=== PATIENT | female | born 1995 | race African-American/Black ===

== ENCOUNTER 2019-12-07 11:43 | Emergency (ER) | payer OTHER, SELFPAY ==
--- NOTE | ~2019-12-07 | XR_ITS ---
EXAMINATION: XR chest 2V EXAM DATE: 12/07/2019 12:39 INDICATION: Nonproductive cough, fever. TECHNIQUE: Frontal and lateral projections of the chest obtained and reviewed. Comparison is made to prior examination from 09/14/2019. FINDINGS: The lungs are clear. There are no pleural effusions. The cardiomediastinal silhouette is within normal limits. There is no pneumothorax suspected. The bones and soft tissues are unremarkab le. IMPRESSION: Normal chest x-ray exam. Reviewed, dictated and finalized at location B. L WORKER HELPER IMPRESSION: Normal chest x-ray exam.
[2019-12-07 11:56] VITALS: BP 119/73; PULSE 118; RESP 16; TEMP 38.5; O2SAT 100
--- NOTE | 2019-12-07 12:04 | ED.GENADULT ---
HPI - General Adult General Chief complaint: Upper Respiratory Infection Stated complaint: back pain Time Seen by Provider: 12/07/19 12:06 Source: patient and RN notes reviewed Mode of arrival: ambulatory Limitations: no limitations History of Present Illness HPI narrative: This patient onset of a cough on 12/05/2019. The cough is been nonproductive. It has not kept her awake. Then she developed mid posterior thoracic back pain when she awakened this morning. Coughing and moving makes the pain worse. She has not had an influenza vaccine this season. She has not had any ear pain, no nasal drainage, no sore throat. She has had no rashes. There is been no nausea, no vomiting, no diarrhea. She has had no hematuria, no dysuria, no pyuria. She has had no rashes. She has had no known exposure to anyone with strep throat, mono, influenza, bronchitis, pneumonia that she is aware of. She has not been traveling. Related Data Home Medications Medication Instructions Recorded Confirmed medroxyprogesterone 150 mg IM DIRECTED 12/07/19 12/07/19 Allergies Allergy/AdvReac Type Severity Reaction Status Date / Time No Known Allergies Allergy Verified 12/07/19 11:59 Review of Systems Review of Systems: Narrative: CONSTITUTIONAL: Denies fever, chills, or sweats. Noncontributory except as pertains to the past medical history and history of present illness. EYES: Denies visual changes, redness, or discharge. ENT: Denies rhinorrhea, congestion, sore throat, or otalgia. CARDIOVASCULAR: Denies chest pain, palpitations, or edema. RESPIRATORY: Denies cough or dyspnea. GASTROINTESTINAL: Denies abdominal pain, nausea, vomiting, or diarrhea. GENITOURINARY: Denies dysuria or hematuria. SKIN: Denies rash or itching. MUSCULOSKELETAL: Denies back pain, joint pain, or myalgia. NEUROLOGIC: Denies headache, numbness, or weakness. PSYCHIATRIC: Denies anxiety or depression. [facility] Past Medical History Medical History (Updated 12/07/19 @ 13:03 by Erik Alexander MD) No significant medical problems Social History Social History (Updated 09/14/19 @ 17:11 by Maria Guadalupe Apodaca) Smoking status: Never smoker Comments At time of signature, I have reviewed and agree with nursing past medical, surgical, social, and family history.Please see nursing chart for further information. There is no relevant family history pertinent to the presenting complaint. Exam Narrative: Exam Narrative: GENERAL: Well-appearing, well-nourished, and in no acute distress. HEAD: Normocephalic, atraumatic. EYES: PERRLA and EOMI. EARS: TM's clear bilaterally and the canals are clear. NOSE: Nares clear, no rhinorrhea or epistaxis. THROAT:Mucous membranes moist.Oropharynx normal without erythema or exudates. NECK: Supple. No adenopathy of the neck, supraclavicular, axillary, or inguinal areas. RESPIRATORY: No respiratory distress. Airway patent. Respirations non-labored. The patient has rhonchi in the upper and midlung hinkle, but not the bases. There are no wheezes, no rales, no retractions, no use accessory muscle respirations. Patient's not cyanotic and not dyspneic. The pulse ox on room air is 100% her current temperature is 101.3. There is no palpation tenderness over the anterior, lateral, or posterior chest wall. There is no chest wall deformity. HEART: Regular rate and rhythm. No murmur heard. Normal peripheral pulses. ABDOMEN: Soft, nontender, nondistended, normal active bowel sounds.No masses. No rebound or guarding, No organomegaly. There is no CVA pain. No pain McBurney's point. She has a negative Farah sign and negative Rovsing sign. There are no pulsatile masses and no audible bruits. EXTREMITIES: No clubbing/cyanosis/ edema. Normal strength & range of motion. SKIN: Warm, dry.Normal color. There are no skin rash or skin lesions. Patient is well-nourished well-hydrated has moist mucous membranes and no tenting of the skin. NEURO: Alert and oriented. CN 2-1
== END 2019-12-07 13:07 | disposition home or self-care (01) ==
PROVIDERS: Emergency Provider Family Medicine
DX: J40 Bronchitis, not specified as acute or chronic (principal)
CPT/HCPCS: 71046; 87804; 99213; G0463

== ENCOUNTER 2019-12-09 03:56 | Emergency (ER) | payer OTHER, SELFPAY ==
--- NOTE | ~2019-12-09 | XR_ITS ---
XR chest 2V DATE: 12/09/2019 04:26 INDICATION: Cough TECHNIQUE: PA and lateral views COMPARISON: None FINDINGS: Normal heart size. No hilar or mediastinal enlargement no pulmonary infiltrate or consolida tion, pleural effusion or pulmonary vascular congestion or pneumothorax. IMPRESSION: No active cardiac pulmonary disease Reviewed, dictated and finalized at location A. [employer]CTURE MANAGER
[2019-12-09 03:57] VITALS: BP 94/61; PULSE 124; RESP 16; TEMP 37.3; O2SAT 100
[2019-12-09 04:06] VITALS: O2SAT 100
--- NOTE | 2019-12-09 04:09 | ED.URI ---
HPI - URI/Sore Throat General Chief Complaint: Upper Respiratory Infection Stated Complaint: fever/cough/bodyaches Time Seen by Provider: 12/09/19 04:00 Source: RN notes reviewed History of Present Illness HPI Narrative: Patient presents emergency department from home for upper respiratory infection. She states symptoms been ongoing for the past 3 days. Station states she has had rhinorrhea, sore throat a cough is been nonproductive and one episode nausea vomiting today. Patient states she went to the urgent care 2 days ago diagnosed with bronchitis and started on Augmentin. Patient states she has been having intermittent fevers with last fever yesterday. She states she is taken no Tylenol or ibuprofen today. States that she does smoke marijuana. Denies any other symptoms at this time Related Data Home Medications Medication Instructions Recorded Confirmed medroxyprogesterone 150 mg IM DIRECTED 12/07/19 12/07/19 Allergies Allergy/AdvReac Type Severity Reaction Status Date / Time No Known Allergies Allergy Verified 12/07/19 11:59 Review of Systems Review of Systems: Narrative: Gen.: Reports fevers and chills Eyes: Denies eye pain or visual change ENT: Reports sore throat and rhinorrhea Respiratory: Reports cough CV: Denies chest pain or palpitations GI: Denies abdominal pain reports nausea and vomiting Musculoskeletal: Denies back pain or muscle pain Neuro: Denies numbness, tingling, weakness or focal weakness Skin: Denies rash Except as documented, all other systems reviewed and negative [facility] Past Medical History Medical History No significant medical problems Social History Social History (Updated 12/09/19 @ 04:10 by Gregor Gale DO) Smoking status: Never smoker Substance use type: marijuana Exam Narrative: Exam Narrative: APPEARANCE: No acute distress, nontoxic, resting in bed EYES: EOMI HEENT: Normocephalic, atraumatic, TMs clear bilaterally, bilateral turbinates boggy, oral mucosa dry, erythema the posterior pharynx and bilateral tonsils, no exudate RESPIRATORY: No respiratory distress Clear to auscultation bilaterally with no rhonchi wheezing or rales. CARDIOVASCULAR: Regular rate and rhythm without murmurs rubs or gallops. ABDOMINAL: Soft, nontender, nondistended, no rebound or guarding MUSCULOSKELETAl: Moves all extremities. No clubbing, cyanosis or edema. NEURO: Awake and alert. Following commands, speech normal, no focal deficits SKIN:: Warm, dry. No rashes lesions or abrasions PSYCHIATRIC: Normal affect/mood, Course Course Emergency Course: Discussed with patient results of workup and diagnosis. Discussed need for follow-up with primary care, proper use of medication, and reasons to return to the emergency department. Patient understands and agrees to current treatment plan patient does have Tessalon Perles at home Vital Signs Vital signs: Vital Signs Temperature 99.1 F 12/09/19 03:57 Pulse Rate 124 H 12/09/19 03:57 Respiratory Rate 16 12/09/19 03:57 Blood Pressure 94/61 L 12/09/19 03:57 Pulse Oximetry 100 12/09/19 03:57 Temperature 97.8 F 12/09/19 05:06 Pulse Rate 86 12/09/19 05:06 Respiratory Rate 18 12/09/19 05:06 Blood Pressure 118/80 12/09/19 05:06 Pulse Oximetry 100 12/09/19 05:06 MDM - URI/Sore Throat Lab Data Labs: Influenza A Screen Negative Reference Range: Negative Influenza B Screen Positive Reference Range: Negative Imaging Data Attestation: I personally reviewed and interpreted this imaging study as follows: My impression: CXR-no acute process Discharge Plan Discharge Clinical Impression: Influenza B Patient Disposition: Home, Self-Care Condition: Stable Instructions: Antibiotic Form, Influenza (ED) Additional Instructions: Return for increased shortness of breath vomiting or any other symptoms of dc
[2019-12-09] MEDS: LACTATED RINGERS 1,000 ML 999 ML IV CONT (04:19)
[2019-12-09 05:06] VITALS: BP 118/80; PULSE 86; RESP 18; TEMP 36.6; O2SAT 100
== END 2019-12-09 05:32 | disposition home or self-care (01) ==
PROVIDERS: Emergency Provider Emergency Medicine
DX: J10.1 Influenza due to other identified influenza virus with other respiratory manifestations (principal)
CPT/HCPCS: 71046; 87804; 96361; 96374; 99284; J0131; J7120

== ENCOUNTER 2020-04-17 06:39 | Emergency (ER) | payer OTHER, SELFPAY ==
--- NOTE | ~2020-04-17 | XR_ITS ---
EXAMINATION: XR shoulder LT min 2V DATE: 04/17/2020 07:23 INDICATION: Left shoulder pain and limited range of motion TECHNIQUE: AP internally and externally rotated, AP oblique externally rotated and transscapular Y vi ews of the left shoulder were obtained. COMPARISON: None FINDINGS: Normal alignment. No fracture. Glenohumeral joint is normal. Acromioclavicular joint is normal. Soft tissues are unremarkable. IMPRESSION: Negative left shoulder radiographs. Reviewed, dictated and finalized at location A.
[2020-04-17 06:46] VITALS: BP 102/72; PULSE 109; RESP 15; TEMP 37; O2SAT 100
--- NOTE | 2020-04-17 07:11 | ED.GENADULT ---
HPI - General Adult General Chief complaint: Extremity Injury, Upper Stated complaint: left shoulder pain x1 month Time Seen by Provider: 04/17/20 07:04 Source: RN notes reviewed History of Present Illness HPI narrative: Patient presents emergency department from home for shoulder pain. Patient states symptoms began 1-1/2 months ago. The pain is located in the left anterior shoulder pain is worse with movement of the shoulder. 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 Denies any direct trauma or injury denies any pain of the left elbow or wrist. Denies any chest pain shortness of breath fever or any other symptoms. Patient states she has been taking ibuprofen for the pain with last dose yesterday Related Data Home Medications Medication Instructions Recorded Confirmed medroxyprogesterone 150 mg IM DIRECTED 12/07/19 12/07/19 Allergies Allergy/AdvReac Type Severity Reaction Status Date / Time No Known Allergies Allergy Verified 12/07/19 11:59 Review of Systems Review of Systems: Narrative: Gen.: Denies fevers or chills Musculoskeletal: See HPI CV: Denies chest pain Respiratory: Denies shortness of breath : Denies chance of Neuro: Denies numbness, tingling, weakness Skin: Denies rash Endo: Denies [facility] Social History Social History Smoking status: Never smoker Substance use type: marijuana Exam Narrative: Exam Narrative: APPEARANCE: No acute distress, nontoxic, resting in bed EYES: EOMI HEENT: Normocephalic, atraumatic, OMM RESPIRATORY: No respiratory distress Clear to auscultation bilaterally with no rhonchi wheezing or rales. CARDIOVASCULAR: Regular rate and rhythm without murmurs rubs or gallops. ABDOMINAL: Soft, nontender, nondistended, no rebound or guarding MUSCULOSKELETAl: Moves all extremities. No clubbing, cyanosis or edema. Tender to palpation of the left anterior shoulder no swelling or ecchymosis pain with flexion abduction greater than 45 degrees, no tenderness left elbow or wrist, radial pulse 2+, neurovascular intact NEURO: Awake and alert. Following commands, speech normal, no focal deficits SKIN:: Warm, dry. No rashes lesions or abrasions PSYCHIATRIC: Normal affect/mood, Course Course Emergency Course: Discussed with patient results of workup and diagnosis. Discussed need for follow-up with primary care, proper use of medication, and reasons to return to the emergency department. Patient understands and agrees to current treatment plan. Discussed with patient need for follow-up with Ortho. We did discuss the use of a sling discussed with the patient with this been a chronic issue for over a month and a half concern that using a sling because the shoulder to become more frozen Vital Signs Vital signs: Vital Signs Temperature 98.6 F 04/17/20 06:46 Pulse Rate 109 H 04/17/20 06:46 Respiratory Rate 15 04/17/20 06:46 Blood Pressure 102/72 04/17/20 06:46 Pulse Oximetry 100 04/17/20 06:46 Temperature 98.6 F 04/17/20 06:46 Pulse Rate 109 H 04/17/20 06:46 Respiratory Rate 15 04/17/20 06:46 Blood Pressure 102/72 04/17/20 06:46 Pulse Oximetry 100 04/17/20 06:46 Medical Decision Making Vital Signs Vital Signs: Vital Signs Temperature 98.6 F 04/17/20 06:46 Pulse Rate 109 H 04/17/20 06:46 Respiratory Rate 15 04/17/20 06:46 Blood Pressure 102/72 04/17/20 06:46 Pulse Oximetry 100 04/17/20 06:46 Temperature 98.6 F 04/17/20 06:46 Pulse Rate 109 H 04/17/20 06:46 Respiratory Rate 15 04/17/20 06:46 Blood Pressure 102/72 04/17/20 06:46 Pulse Oximetry 100 04/17/20 06:46 Discharge Plan Discharge Clinical Impression: Sprain of left shoulder Patient Disposition: Home, Self-Care Condition: Stable
[2020-04-17] MEDS: IBUPROFEN 400 MG TABLET PO (07:24)
== END 2020-04-17 08:10 | disposition home or self-care (01) ==
PROVIDERS: Emergency Provider Emergency Medicine
DX: S43.402A Unspecified sprain of left shoulder joint, initial encounter (principal); X58.XXXA Exposure to other specified factors, initial encounter
CPT/HCPCS: 73030; 99283; A9270

== ENCOUNTER 2021-02-05 13:34 | Emergency (ER) | payer OTHER, SELFPAY ==
[2021-02-05 13:49] VITALS: BP 120/65; PULSE 80; RESP 16; TEMP 36.8; O2SAT 99
--- NOTE | 2021-02-05 13:54 | ED.EYEPROB ---
HPI - Eye Problem General Chief complaint: Eye Problems Stated complaint: Swollen Eye Time Seen by Provider: 02/05/21 13:50 Source: patient and RN notes reviewed Mode of arrival: ambulatory Limitations: no limitations History of Present Illness HPI Narrative: Three 5-year-old female presents with concern for possible stye on her right upper eyelid. Reports 1 month history of a bump on the inner corner of the right upper eyelid, reports mild eyelid edema. Reports that she has been using warm compresses and moisturizing drops with no relief. She denies vision changes, eye pain, drainage. MD chief complaint: other (eyelid abnormality) Related Data Home Medications Medication Instructions Recorded Confirmed medroxyprogesterone 150 mg IM DIRECTED 12/07/19 02/05/21 albuterol sulfate 2 inh INHALATION DIRECTED 02/05/21 02/05/21 Allergies Allergy/AdvReac Type Severity Reaction Status Date / Time No Known Allergies Allergy Verified 12/07/19 11:59 Review of Systems Review of Systems: Narrative: CONSTITUTIONAL: Denies malaise, chills, sweats, or fever. EYES: Denies visual changes, redness, or discharge. Reports a lump on her right upper eyelid, minor eyelid swelling. Denies pain ENT: Denies rhinorrhea, congestion, sinus pain, otalgia or sore throat. SKIN: Denies rash or itching. NEUROLOGIC: Denies headache. All systems reviewed & are unremarkable except as noted in HPI and below PMFSH Past Medical History Medical History (Updated 02/05/21 @ 13:57 by Carole Yousif NP) No significant medical problems Social History Social History Smoking status: Never smoker Substance use type: marijuana Comments At time of signature, agree with nursing past medical, surgical, social and family history. There is no relevant family history pertinent to the presenting complaint Exam Narrative: Exam Narrative: GENERAL: Well-appearing, well-nourished, and in no acute distress. HEAD: Normocephalic, atraumatic. EYES: PERRLA, conjunctivae clear, and EOMI. No nystagmus. Flaccid noted to the right upper eyelid, inner canthus, mild upper eyelid edema noted, no drainage noted ENT: Nares clear. Mucous membranes moist. NECK: Supple. CHEST: No respiratory distress. Speaks in full sentences. HEART: Regular rate and rhythm SKIN: Warm, dry, no rash. NEURO: Alert and oriented x3. PSYCH: Normal mood and affect Course Course Emergency Course: Patient is aware of diagnosis, understands and agrees to treatment plan. Anticipatory guidance given. Patient agrees to follow-up as directed and is aware of reasons to seek care at the emergency department. Portions of this record may have been created with voice recognition software Vital Signs Vital signs: Vital Signs Temperature 98.3 F 02/05/21 13:49 Pulse Rate 80 02/05/21 13:49 Respiratory Rate 16 02/05/21 13:49 Blood Pressure 120/65 02/05/21 13:49 Pulse Oximetry 99 02/05/21 13:49 Temperature 98.3 F 02/05/21 13:49 Pulse Rate 80 02/05/21 13:49 Respiratory Rate 16 02/05/21 13:49 Blood Pressure 120/65 02/05/21 13:49 Pulse Oximetry 99 02/05/21 13:49 Reviewed. MDM - Eye Problem MDM Narrative Medical decision making narrative: Consideration of the following conditions may be warranted for the presenting problem, they are not final diagnoses: Bacterial conjunctivitis, allergic conjunctivitis, viral conjunctivitis, foreign body, blepharitis, chalazion, hordeolum, corneal abrasion, preseptal cellulitis, orbital cellulitis. No evidence of proptosis, ophthalmoplegia, vision loss, pain with eye movement. Exam findings show no acute concerns or changes; patient is non-toxic appearing and is in no distress. Patient is appropriate for outpatient treatment and follow-up. Critical Care Time Critical Care Time Critical Care Time: No Discharge Plan Discharge Clinical Impression: Chalazion of right u
== END 2021-02-05 14:01 | disposition home or self-care (01) ==
PROVIDERS: Emergency Provider Nurse Practitioner
DX: H00.11 Chalazion right upper eyelid (principal)
CPT/HCPCS: 99213; G0463

== ENCOUNTER 2021-05-22 13:44 | Emergency (ER) | payer OTHER, SELFPAY ==
[2021-05-22 13:51] VITALS: BP 111/61; PULSE 79; RESP 16; TEMP 36.4; O2SAT 99
--- NOTE | 2021-05-22 14:22 | ED.ABDPAIN ---
HPI - Abdominal Pain General Chief Complaint: Abdominal Pain Stated Complaint: abd pain Time Seen by Provider: 05/22/21 14:10 Source: patient and RN notes reviewed Mode of arrival: ambulatory Limitations: no limitations History of Present Illness HPI narrative: Patient presents today complaining of upper abdominal pain x1.5 months. Pain comes and goes every 1-2 hours and last for 3 to 5 minutes. She describes the pain as sharp. Occasionally she experiences nausea when her pain arrives. States her pain is worse today and she needed to leave work. She does not currently have any pain. She has not tried any [id number] treatment prior to arrival. MD elicited complaint: abdominal pain Related Data Home Medications Medication Instructions Recorded Confirmed medroxyprogesterone 150 mg IM DIRECTED 12/07/19 02/05/21 Allergies Allergy/AdvReac Type Severity Reaction Status Date / Time No Known Allergies Allergy Verified 12/07/19 11:59 Review of Systems Review of Systems: Narrative: CONSTITUTIONAL: Denies body aches, fever, chills, or sweats. EYES: Denies visual changes, redness, or discharge. ENT: Denies rhinorrhea, congestion, sore throat, or otalgia. CARDIOVASCULAR: Denies chest pain, palpitations, or edema. RESPIRATORY: Denies cough or dyspnea. GASTROINTESTINAL: Denies vomiting, or diarrhea.+ Abdominal pain, nausea GENITOURINARY: Denies dysuria or hematuria. SKIN: Denies rash, itching, or wounds. MUSCULOSKELETAL: Denies back pain, joint pain, or myalgia. NEUROLOGIC: Denies headache, numbness, tingling, or weakness. PSYCH: Denies depression or anxiety. [facility] Past Medical History Medical History (Updated 05/22/21 @ 14:27 by Prisca Loco, [facility], ) No significant medical problems Social History Social History Smoking status: Never smoker Substance use type: marijuana Comments At time of signature, I have reviewed and agree with nursing past medical, surgical, social and family history unless otherwise noted. Please see nursing chart for further information. There is no relevant family history pertinent to the presenting complaint Exam Narrative: Exam Narrative: GENERAL: Well-appearing, well-nourished, and in no acute distress. HEAD: Normocephalic, atraumatic. EYES: EOMI. No redness or drainage. Conjunctivae normal. ENT: Mucous membranes pink and moist. NECK: Normal AROM. CHEST: No respiratory distress. Clear to auscultation. HEART: Regular rate and rhythm. No murmur appreciated. Normal peripheral pulses. ABDOMEN: Soft, nondistended, normal active bowel sounds.+ Epigastric tenderness MUSCULOSKELETAL: No bony tenderness. EXTREMITIES: Normal range of motion. No edema. SKIN: Warm, dry, no rash. Capillary refill normal. Normal skin turgor. NEURO: No focal deficits. Alert and oriented x3. Gait steady. PSYCH: Normal affect. No signs of depression or anxiety. Course Vital Signs Vital signs: Vital Signs Temperature 97.5 F L 05/22/21 13:51 Pulse Rate 79 05/22/21 13:51 Respiratory Rate 16 05/22/21 13:51 Blood Pressure 111/61 05/22/21 13:51 Pulse Oximetry 99 05/22/21 13:51 Temperature 97.5 F L 05/22/21 13:51 Pulse Rate 79 05/22/21 13:51 Respiratory Rate 16 05/22/21 13:51 Blood Pressure 111/61 05/22/21 13:51 Pulse Oximetry 99 05/22/21 13:51 Reviewed MDM - Abdominal Pain Differential Diagnosis Differential diagnosis: Likely abdominal pain and other (Cholecystitis, gastritis, esophagitis, GERD) Lab Data Attestation: I reviewed the patient's lab results. Labs: Urine Glucose Negative Reference Range: Negative Urine Bilirubin Negative Reference Range: Negative Urine Ketone Negative Reference Range: Neg
== END 2021-05-22 14:33 | disposition home or self-care (01) ==
PROVIDERS: Emergency Provider Nurse Practitioner
DX: K29.70 Gastritis, unspecified, without bleeding (principal)
CPT/HCPCS: 81003; 99213; G0463

== ENCOUNTER 2021-05-25 23:20 | Emergency (ER) | payer OTHER, SELFPAY ==
[2021-05-25 23:30] VITALS: BP 110/69; PULSE 92; RESP 18; TEMP 37.1; O2SAT 100
--- NOTE | 2021-05-25 23:34 | PC.NURSE ---
Patient has been taking macrobid as prescribed without relief of symptoms.
--- NOTE | 2021-05-26 00:45 | PC.NURSE ---
Call for patient to treatment room, no answer.
--- NOTE | 2021-05-26 01:45 | PC.NURSE ---
Call to patient in waiting room, no answer. Pt not in bathroom or in vertibule immediately outside of ED. Assume pt has left without being seen.
== END 2021-05-26 01:45 | disposition left against medical advice (07) ==
DX: R30.0 Dysuria (principal)
CPT/HCPCS: 99199

== ENCOUNTER 2021-05-26 15:04 | Emergency (ER) | payer OTHER, SELFPAY ==
[2021-05-26 15:13] VITALS: BP 117/76; PULSE 103; RESP 16; TEMP 37.7; O2SAT 100
[2021-05-26 15:36] LABS: Add Urine Microscopic? YES; Appearance Urine Clear (Clear); Bilirubin Urine Negative (Negative); Blood Urine Negative (Negative); Color Urine Yellow (Yellow); Glucose Urine UA Negative (Negative); Ketones Urine Negative (Negative); Leukocyte Esterase Ur 3+ LEU/UL (Negative); Mucus Urine Rare /lpf; Nitrate Urine Negative (Negative); Protein Urine Negative (Negative); Squamous Epithelial Cell Urine Moderate /hpf (Few); WBC Urine 21-30 /hpf
[2021-05-26 16:25] VITALS: BP 104/68; PULSE 92; RESP 20; O2SAT 100
--- NOTE | 2021-05-26 16:48 | ED.FEMALEGU ---
HPI - Female Genitourinary General Chief complaint: Urogenital-Female Stated complaint: lower back pain Time Seen by Provider: 05/26/21 15:25 Source: patient and RN notes reviewed Mode of arrival: ambulatory Limitations: no limitations History of Present Illness HPI Narrative: This is a 25 year old female who presents for evaluation vaginal itching, swelling and pain. She developed symptoms on Friday. She states she was started on antibiotics on Friday and she has been taking them twice day. She continues to have vaginal pain and swelling, and she has no improvement. She denies fever, nausea, vomiting or abdominal pain. She does reports lower back ache. She states her partner was tested for STDS and it was negative. Related Data Home Medications Medication Instructions Recorded Confirmed medroxyprogesterone 150 mg IM DIRECTED 12/07/19 02/05/21 nitrofurantoin monohyd/m-cryst 05/26/21 Allergies Allergy/AdvReac Type Severity Reaction Status Date / Time No Known Allergies Allergy Verified 05/26/21 15:27 Review of Systems Review of Systems: All systems reviewed & are unremarkable except as noted in HPI and below PMFSH Past Medical History Medical History (Updated 05/26/21 @ 17:36 by Dori Kapoor MD) No significant medical problems Surgical History Surgical History (Updated 05/26/21 @ 16:51 by Dori Kapoor MD) No pertinent past surgical history Social History Social History Smoking status: Never smoker Substance use type: marijuana Exam Const: General: alert Nutritional Appearance: thin Orientation/consciousness: patient oriented x3 HENMT: Head: normocephalic and atraumatic Face and sinus: face symmetric Eyes: EOM: EOMs intact bilaterally Resp: Effort & Inspection: normal respiratory effort and no retractions Auscultation: clear to auscultation bilaterally Cardio: Rate: regular rate Rhythm: regular rhythm Heart sounds: no murmurs GI: GI Palp: Yes Soft to palpation, No Tenderness to palpation present (GI) and No Guarding due to palpation present (GI) Auscultation: normal bowel sounds : External Female Exam: externally tender and lesion (multipel small ulcerations to labia minora) Speculum Exam - Vagina: abnormal vaginal discharge yellow Speculum Exam - Cervix: Cervical os closed, Abnormal cervical discharge present yellow, Cervical lesion present petechiae and Cervical tenderness present Bimanual exam- vagina & uterus: Cervical tenderness present and cervical motion tenderness Back/Spine/Pelvis: Back: no CVA tenderness Neuro: General: patient oriented x3 and moves all extremities Extrem: General: normal to inspection Psych: Mental Status: mental status grossly normal Affect: normal affect Course Reevaluation(s) Reevaluation #1: I discussed with patient that she will be treated for PID. She has multiple ulcerations external lesions. Cervix is friable. Culture herpes was sent. 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 Date: 05/26/21 Time: 17:34 Vital Signs Vital signs: Vital Signs Temperature 99.8 F H 05/26/21 15:13 Pulse Rate 103 H 05/26/21 15:13 Respiratory Rate 16 05/26/21 15:13 Blood Pressure 117/76 05/26/21 15:13 Pulse Oximetry 100 05/26/21 15:13 Temperature 99.8 F H 05/26/21 15:13 Pulse Rate 92 05/26/21 16:25 Respiratory Rate 20 05/26/21 16:25 Blood Pressure 104/68 05/26/21 16:25 Pulse Oximetry 100 05/26/21 16:25 MDM - Female Genitourinary Lab Data Attestation: I reviewed the patient's lab results. Labs: Lab Results 05/26/21 05/26/21 05/26/21 Range/Units 15:26 16:58 16:58 Urine Color Yellow (Yellow) Urine Appearance Clear (Clear) Urine pH 9.0 (5.0-9.0) Ur Specific Hamilton 1.020 (1.001-1.035) Urine Protein Negative (Negative) mg/dL Urine Glucose (UA) Negative (Negative) mg/dL
[2021-05-26] MEDS: cefTRIAXone 1 GM VIAL 0.5 GM IM (16:55)
[2021-05-26] MEDS: DOXYCYCLINE HYCLATE 100 MG TABLET PO (16:56)
[2021-05-26] MEDS: IBUPROFEN 400 MG TABLET PO (16:56)
--- NOTE | 2021-05-26 17:47 | PC.NURSE ---
Pt states her IV was removed by Ana. No IV was in pts arm upon discharge
== END 2021-05-26 17:47 | disposition home or self-care (01) ==
PROVIDERS: Emergency Medicine; Emergency Provider General Practice
DX: N73.9 Female pelvic inflammatory disease, unspecified (principal)
CPT/HCPCS: 81001; 81025; 87070; 87086; 87255; 87491; 87591; 87808; 96372; 99284; A9270; J0696

== ENCOUNTER 2023-12-10 16:51 | Emergency (ER) | payer OTHER, SELFPAY ==
[2023-12-10 17:03] VITALS: BP 98/60; PULSE 86; RESP 16; TEMP 36.8; O2SAT 99
--- NOTE | 2023-12-10 17:34 | ED.GENADULT ---
HPI - General Adult General Chief complaint: Urogenital-Female Stated complaint: vaginal issue Source: patient, RN notes reviewed and old records reviewed Mode of arrival: ambulatory Limitations: no limitations History of Present Illness HPI narrative: 20-year-old female presents to [facility] with complaints of vaginal itching with white vaginal discharge that started 2-3 days ago after patient used a perfumed [employer] soap. Patient denies concerns for STDs. Patient denies UTI symptoms. Related Data Home Medications Medication Instructions Recorded Confirmed medroxyprogesterone 150 mg/mL 150 mg IM DIRECTED 12/07/19 12/10/23 intramuscular suspension escitalopram oxalate 10 mg tablet 10 mg PO DAILY 12/10/23 12/10/23 Allergies Allergy/AdvReac Type Severity Reaction Status Date / Time No Known Allergies Allergy Verified 12/10/23 17:01 Review of Systems Constitutional: Constitutional: Reports no additional constitutional complaints, Denies body ache(s), Denies chills, Denies fatigue, Denies fever(s) and Denies headache(s) Eyes: Eyes: Reports no additional eye complaints and Denies blurry vision ENT: Reports system reviewed and no additional complaints, except as documented, Denies vertigo, Denies dizziness, Denies ear discharge, Denies otalgia, Denies facial pain, Denies headache(s), Denies nasal congestion, Denies nasal discharge, Denies sinus pain, Denies sinus pressure and Denies sore throat Cardiovascular: Cardiovascular: Reports no additional cardiovascular complaints, Denies chest pain, Denies chest pain at rest, Denies rapid heart rate and Denies dyspnea Respiratory: Respiratory: Reports no additional respiratory complaints, Denies chest congestion, Denies cough, Denies pain on inspiration, Denies pain with cough and Denies dyspnea Gastrointestinal: Gastrointestinal: Denies abdominal pain, Denies diarrhea, Denies nausea and Denies vomiting Genitourinary: Genitourinary: Reports vaginal discharge ( Thick white) and Reports vaginal pruritus Integumentary/Breasts: Skin/Breast: Denies rash Neurologic: Reports system reviewed and no additional complaints, except as documented, Denies vertigo, Denies dizziness and Denies headache(s) Endocrine: Endocrine: Denies fatigue PMFSH Past Medical History Medical History No significant medical problems Surgical History Surgical History No pertinent past surgical history Social History Social History Smoking status: Never smoker Substance use type: marijuana Comments At the time of my signature, I reviewed and agree with the nursing past medical, surgical, social, and family history. There is no relevant family history pertinent to the patient complaint. Exam Const: General: cooperative, healthy appearing, no acute distress and well nourished Nutritional Appearance: well nourished Orientation/consciousness: patient oriented x3 Limitations: no limitations HENMT: Head: normal to inspection and normocephalic Ears: external ears normal, TM's normal bilaterally, mastoids normal and Abnormal EAC present Face/Nose/Sinus: normal facial exam Face and sinus: normal facial exam Mouth: Yes Normal oral and palatal mucosa present, Yes oropharynx normal and Yes moist mucous membranes Throat: tonsils normal, uvula midline and no uvular edema Eyes: General: appearance normal, both eyes and all related structures Sclera: sclerae normal Pupils: Equal, round and reactive pupils present Resp: Effort & Inspection: normal respiratory effort, able to speak in complete sentences, no audible wheezes, no cough, no respiratory distress and no retractions GI: Inspection: normal to inspection GI Palp: No abdominal tenderness, Yes Soft to palpation, No Firmness to palpation present (GI) and No Tenderne
== END 2023-12-10 17:43 | disposition home or self-care (01) ==
PROVIDERS: Emergency Provider Registered Nurse
DX: B37.31 Acute candidiasis of vulva and vagina (principal); F12.90 Cannabis use, unspecified, uncomplicated
CPT/HCPCS: 99213; G0463

== ENCOUNTER 2024-03-28 06:48 | Emergency (ER) | payer OTHER, SELFPAY ==
[2024-03-28 06:55] VITALS: BP 119/76; PULSE 79; RESP 14; O2SAT 100
--- NOTE | 2024-03-28 07:35 | ED.BACK ---
HPI - Back Pain/Injury General Chief Complaint: Back Pain/Injury Stated Complaint: Lower back pain Time Seen by Provider: 03/28/24 07:00 History of Present Illness HPI Narrative: Patient is a 28-year-old female who presents ER with left-sided back pain. Sudden onset. Flank region. Occasion radiates towards the epigastrium. No nausea or vomiting. Began yesterday. Worse with physical movements such as bending and twisting. No urinary frequency urgency or dysuria. She has been taking ibuprofen with minimal improvement. Occasionally has pain with deep breath but is not particularly dyspnea. No hemoptysis. No leg swelling. Related Data Home Medications Medication Instructions Recorded Confirmed medroxyprogesterone 150 mg/mL 150 mg IM DIRECTED 12/07/19 12/10/23 intramuscular suspension escitalopram oxalate 10 mg tablet 10 mg PO DAILY 12/10/23 12/10/23 Allergies Allergy/AdvReac Type Severity Reaction Status Date / Time No Known Allergies Allergy Verified 03/28/24 07:07 Review of Systems Review of Systems: All systems reviewed & are unremarkable except as noted in HPI and below Constitutional: Constitutional: Reports no additional constitutional complaints ENT: Reports system reviewed and no additional complaints, except as documented Cardiovascular: Cardiovascular: Reports no additional cardiovascular complaints Respiratory: Respiratory: Reports no additional respiratory complaints Gastrointestinal: Gastrointestinal: Reports no additional gastrointestinal complaints Musculoskeletal: Musculoskeletal: Reports back pain, Denies arthralgias and Denies joint swelling PMFSH Past Medical History Medical History No significant medical problems Surgical History Surgical History No pertinent past surgical history Social History Social History Smoking status: Never smoker Substance use type: marijuana Exam Narrative: GENERAL: Uncomfortable-appearing, well-nourished, and in no acute distress. HEAD: Normocephalic, atraumatic. ENT: Mucous membranes moist. CHEST: Clear to auscultation. No respiratory distress. HEART: Regular rate and rhythm. Normal peripheral pulses. ABDOMEN: Soft, nontender, nondistended. back: No reproducible midline and paraspinal muscle tenderness of the T/L-spine. Patient does have pain however with bending and twisting in left side. EXTREMITIES: Normal range of motion. No edema. SKIN: Warm, dry, no rash. NEURO: Alert and oriented x3. PSYCH: Normal mood and affect. Course Course Emergency Course: patient resting comfortably. Received Toradol for pain. Nonspecific elevation in white blood cell count. Negative D-dimer. Normal CMP and lipase. Patient felt appropriate for discharge home with anti-inflammatories muscle relaxers. Vital Signs Vital signs: Vital Signs Pulse Rate 79 03/28/24 06:55 Respiratory Rate 14 03/28/24 06:55 Blood Pressure 119/76 03/28/24 06:55 Pulse Oximetry 100 03/28/24 06:55 Oxygen Delivery Room Air 03/28/24 06:55 Pulse Rate 82 03/28/24 08:15 Respiratory Rate 18 03/28/24 08:15 Blood Pressure 106/75 03/28/24 08:15 Pulse Oximetry 100 03/28/24 08:15 Oxygen Delivery Room Air 03/28/24 06:55 MDM - Back Pain/Injury Lab Data 03/28/24 07:34 03/28/24 07:34 Labs: Lab Results 03/28/24 Range/Units 07:34 WBC 10.6 H (4.5-10.0) K/mm3 RBC 4.87 (4.2-5.4) M/mm3 Hgb 14.5 (12.0-15.0) g/dL Hct 45.1 (37.0-47.0) % MCV 92.6 (80-100) fl MCH 29.8 (26-34) pg MCHC 32.2 (32-36) g/dl RDW 13.9 (11.5-14.5) % Plt Count 231 (150-375) k/mm3 MPV 9.1 (7.4-10.4) fl Immature Gran % (Auto) 0.4 (0-0.5) % Neut % (Auto) 69.2 (45.5-73.1) % Lymph % (Auto) 19.1 (18.3-44.2) % Shannon % (Auto)
[2024-03-28] MEDS: KETOROLAC 30 MG/ML VIAL (*BKC) IV PUSH (07:38)
[2024-03-28 07:41] LABS: Basophils Absolute Auto 0.1 K/mm3 (0.0-0.1); Basophils Percent Auto 0.5 % (0.2-1.2); Eosinophils Absolute Auto 0.1 K/mm3 (0-0.3); Eosinophils Percent Auto 0.8 % (0-4.4); Hematocrit 45.1 % (37.0-47.0); Hemoglobin 14.5 g/dL (12.0-15.0); Immature Granulocyte Absolute 0.04 K/mm3 (0.00-0.031); Immature Granulocyte Percent A 0.4 % (0-0.5); Lymphocytes Absolute Auto 2.03 K/mm3 (0.9-3.2); Lymphocytes Percent Auto 19.1 % (18.3-44.2); Mean Corpuscular HGB Conc 32.2 g/dl (32-36); Mean Corpuscular Hemoglobin 29.8 pg (26-34); Mean Corpuscular Volume 92.6 fl (80-100); Mean Platelet Volume 9.1 fl (7.4-10.4); Monocytes Absolute Auto 1.1 K/mm3 (0.1-0.6); Neutrophils Absolute Auto 7.4 K/mm3 (1.3-6.7); Neutrophils Percent Auto 69.2 % (45.5-73.1); Platelet Count Result 231 k/mm3 (150-375); Red Blood Count 4.87 M/mm3 (4.2-5.4); Red Cell Distribution Width 13.9 % (11.5-14.5); White Blood Count 10.6 K/mm3 (4.5-10.0)
[2024-03-28 07:51] LABS: Alanine Aminotransferase 15 U/L (6-35); Albumin Level 4.6 g/dL (3.5-5.1); Alkaline Phosphatase 49 U/L (38-126); Anion Gap 7 mmol/L (4-12); Aspartate Amino Transferase 20 U/L (14-36); Bilirubin,Total 0.9 mg/dL (0.2-1.3); Blood Urea Nitrogen 13 mg/dL (7-17); Calcium 9.7 mg/dL (8.4-10.2); Carbon Dioxide 24 mmol/L (22-30); Chloride 107 mmol/L (98-107); Estimated CRCL calculation 62 ml/min; Estimated Glomerular Filt Rate > 60; Glucose 89 mg/dL (65-110); Lipase 59 U/L (23-300); Potassium 4.1 mmol/L (3.4-5.0); Sodium 138 mmol/L (137-145)
[2024-03-28 08:15] VITALS: BP 106/75; PULSE 82; RESP 18; O2SAT 100
[2024-03-28 08:15] LABS: D Dimer < 0.27 ug/mL (<0.48)
[2024-03-28 10:11] VITALS: BP 114/71; PULSE 80; RESP 16; O2SAT 100
== END 2024-03-28 10:11 | disposition home or self-care (01) ==
PROVIDERS: Emergency Provider Emergency Medicine
DX: M54.50 Low back pain, unspecified (principal)
CPT/HCPCS: 36415; 80053; 81025; 83690; 85025; 85380; 96374; 99284; J1885

== ENCOUNTER 2024-05-20 14:02 | Outpatient (CLI) | payer OTHER, SELFPAY ==
--- NOTE | ~2024-05-20 | US_ITS ---
US breast BI complete 05/20/2024 15:02 Indication: Breast pain Procedure: High-resolution bilateral complete breast ultrasound including all 4 quadrants in the suba reolar locations. Comparison: No prior studies for comparison. Findings: Right breast: At 3:00, 4 cm from the nipple there is a 7 mm cyst. In the right axilla there is a 9 mm oval hypoechoic mass, likely a complicated cyst or lymph node. Left breast: At 3:00, 6 cm from the nipple, there is a complicated 1.3 cm cyst with internal septatio ns and debris. There is internal vascularity. No posterior features. Impression: 1: Complicated left breast cystic mass at 3:00, 6 cm from the nipple measuring 1.3 cm. BI-RADS CATEGORY 4-SUSPICIOUS ABNORMALITY RECOMMENDATION: Ultrasound-guided left breast biopsy recommended. Reviewed, dictated and finalized at location B. Impression: 1: Complicated left breast cystic mass at 3:00, 6 cm from the nipple measuring 1.3 cm. BI-RADS CATEGORY 4-SUSPICIOUS ABNORMALITY RECOMMENDATION: Ultrasound-guided left breast biopsy recommended.
== END 2024-05-20 14:03 | disposition home or self-care (01) ==
PROVIDERS: PCP Physician Assistant; Visit Provider Physician Assistant
DX: N64.4 Mastodynia (principal); R92.8 Other abnormal and inconclusive findings on diagnostic imaging of breast
CPT/HCPCS: 76641

== ENCOUNTER 2024-05-26 07:40 | Outpatient (CLI) | payer OTHER, SELFPAY ==
--- NOTE | ~2024-05-26 | US_ITS ---
CORRECTED REPORT corrected order description [facility] 06/01/24 This report was recreated on 06/01/24. Original report was US breast LT limited 05/26/2024 08:49 Indication: Left breast mass seen on prior examination. Biopsy requested. Procedure: High-resolution Limited ultrasound of the left breast Comparison: 05/20/2024 Findings: At 3:00, 6 cm from the nipple there is a septated cyst with parallel orientation, posterior acoustic enhancement and some internal vascularity of the septation measuring 1.4 x 1.3 x 0.4 cm. The morphology has changed slightly compared with prior examination, although this could be due to technique. This is likely benign given the appearance and patient age. Impression: 1: Probable benign complicated cyst of the left breast at 3:00, 6 cm from the nipple measuring 1.4 cm. BI-RADS CATEGORY 3-PROBABLY BENIGN FINDING RECOMMENDATION: 6 month follow-up Limited left breast ultrasound recommended. Reviewed, dictated and finalized at location B. MTDD Impression: 1: Probable benign complicated cyst of the left breast at 3:00, 6 cm from the n ipple measuring 1.4 cm. BI-RADS CATEGORY 3-PROBABLY BENIGN FINDING RECOMMENDATION: 6 month follow-up Limited left breast ultrasound recommended.
== END 2024-05-26 07:41 | disposition home or self-care (01) ==
PROVIDERS: PCP Physician Assistant; Visit Provider Physician Assistant
DX: N63.20 Unspecified lump in the left breast, unspecified quadrant (principal); R92.8 Other abnormal and inconclusive findings on diagnostic imaging of breast
CPT/HCPCS: 76642

== ENCOUNTER 2024-11-30 08:27 | Outpatient (CLI) | payer OTHER, SELFPAY ==
--- NOTE | ~2024-11-30 | US_ITS ---
US breast RT limited 11/30/2024 09:00 Indication: Palpable lump right upper outer quadrant right breast. Procedure: High-resolution Limited ultrasound of the right breast Comparison: 05/20/2024 Findings: There are multiple cysts of the right breast. At 12:00, 5 cm from the nipple there is an ov al circumscribed 6 mm mass with parallel orientation, no significant posterior features and no internal control specialist al vascularity, likely a complicated cyst. Impression: 1: Probable benign right breast mass at 12:00, 5 cm from the nipple. BI-RADS CATEGORY 3-PROBABLY BENIGN FINDING RECOMMENDATION: 6 month follow up recommended. Reviewed, dictated and finalized at location A. [employer] Impression: 1: Probable benign right breast mass at 12:00, 5 cm from the nipple. BI-RADS CATEGORY 3-PROBABLY BENIGN FINDING RECOMMENDATION: 6 month follow up recommended.
--- OUTSIDE RECORDS SUMMARY | 2024-12-02 16:15 | XMS_ITS | Data Portability ---
Author Organization [facility] Address [address] [place] [address] [place] [address] Assessment No assessment recorded. Plan of Treatment Reminders Order Date Submit Date Provider Last Modified By Organization Details Last Modified Time Details Appointments None recorded. Lab None recorded. Referral None recorded. Procedures None recorded. Surgeries None recorded. Imaging US, breast, bilateral 2023 024 [facility] (Mammography) , [address], [place], [address], 4 04:01:06 Medication Orders None recorded. Patient TargetsNo targets recorded. Patient InstructionsNo instructions recorded. Reason for Referral None Reported. Medical Equipment None Reported. Medications Name Sig Start Date Stop Date Status Note LastModified by Organization Details LastModified Time cyclobenzap rine 10 mg tablet TAKE 1 TABLET BY MOUTH 3 TIMES DAILY NEEDED FOR MUSCLE SPASM 10/04 completed Not Available Not Available Not Available fluconazole 100 mg tablet 100 MG ORALLY EVERY 72 HOURS 10/04 completed Not Available Not Available Not Available naproxen 375 mg tablet TAKE 1 TABLET BY MOUTH TWICE DAILY 10/04 completed Not Available Not Available Not Available valacyclovi r 1 gram tablet TAKE 1 TABLET BY MOUTH EVERY DAY 10/04 completed Not Available Not Available Not Available benzonatate 100 mg capsule TAKE ONE CAPSULE. EVERY 8 HOURS IS NEEDED FOR COUGH 10/04 completed Not Available Not Available Not Available medroxyprog esterone 150 mg/mL intramuscul ar suspension Inject 1 ml (150 mg) intramusc ularly every 3 months 10/04 completed Not Available Not Available Not Available ipratropium bromide 21 mcg (0.03 %) nasal spray SPRAY 2 SPRAYS INTO EACH NOSTRIL 3 TIMES A DAY 10/04 completed Not Available Not Available Not Available escitalopra m 10 mg tablet TAKE 1 TABLET BY MOUTH EVERY DAY 10/04 completed Not Available Not Available Not Available Vitals Date Recorded Body height Body mass index (BMI) Body weight Systolic blood pressure Diastolic blood pressure Provider Name and Address Organization Details Last Updated DateTime 10/04/2024 167.64 cm 17.1 kg/m2 17741.79 g 134 mm[Hg] 82 mm[Hg] Bethany Vargas [facility] 14:51:46 Social History Question Answer Notes LastModified by Organizat ion Details LastModified Time Tobacco Smoking Status Never Smoker Bethany Vargas [facility] 10/04/2024 14:52:47 What Is Your Level Of Alcohol Consumption? None [email or web address] Information not available 10/04/2024 Are You Blind Or Do You Have Difficulty Seeing? No [email or web address] Information n ot available 10/04/2024 In The 14 Days Before Symptom Onset, Have You Had Close Contact With A Laboratory-confirm ed COVID-19 While That Case Was Ill? No [email or web address] Information n ot available 10/04/2024 In The 14 Days Before Symptom Onset, Have You Had Close Contact With A Person Who Is Under Investigation For COVID-19 While That Person Was Ill? No [email or web address] Information not available 10/04/2024 Have You Been To An Area Known To Be High Risk For COVID-19? No [email or web address] Information not available 10/04/2024 Are You Currently Employed? Yes Information not available 10/04/2024 Are You Deaf Or Do You Have Serious Difficulty Hearing? No [email or web address] Information not available 10/04/2024 What Type Of Diet Are You Following? REGULAR [email or web address] Information n ot available 10/04/2024 What Is The Highest Grade Or Level Of School You Have Completed Or The Highest Degree You Have Received? [id number] [email or web address] Information not available 10/04/2024 What Is Your Occupation? [employer] [email or web address] Information not available 10/04/2024 Are There Any Guns Present In Your Home? No [email or web address] Information not available 10/04/2024 Do You Use Your Seat Belt Or Car Seat Routinely? Yes Information not available 10/04/2024 Are You Sexually Active? No Information not available 10/04/2024 Do You Have Smoke And Carbon Monoxide Detectors In Your Home? Yes [email or web address] Information not available 10/04/2024 Do You Feel Stressed (tense, Restless, Nervous, Or Anxious, Or Unable To Sleep At Night)? [id number] [email or web address] Information not available 10/04/2024 Do You Use Sunscreen Routinely? No [email or web address] Information not available 10/04/2024 Sex: Unknown Functional Status Question Answer Note LastModified by Organizat ion Details LastModified Time Do you have difficulty walking or climbing stairs? No [email or web address] Information not available 10/04/2024 Are you able to walk? YESWOREST [email or web address] Information not available 10/04/2024 Are you able to care for yourself? Yes [email or web address] Information not available 10/04/2024 Do you have difficulty dressing or bathing? No [email or web address] Information not available 10/04/2024 What is your exercise level? Moderate [email or web address] Information not available 10/04/2024 Mental Status None recorded. Family History Nothing Reported. Medical History Condition Response Allergies (Food, seasonal, environmental ) N Other N Breast Cancer N Drug/Latex Allergies/Reactions N Blood Transfusion N Dermatologic Disorders N Lung Disease N Defects or Inherited Disease N Breast Problem N Gestational Diabetes N Hematologic disorders N Anesthesia Complications N History of STI N Deep Vein Thrombosis N Polycystic ovary syndrome N Anxiety Disorder N Autoimmune disease N Arthritis N Infertility N Polyps N Acid Reflux (GERD) N History of abnormal pap N Cancer N Stroke N Varicosities N Neurologic/Epilepsy N Endometriosis N High Cholesterol N Headaches N Fibromyalgia N Kidney Disease N Heart Problems N Kidney or Bladder Problems N Thyroid Problems N GI Problems N Eating Disorder N Anemia N Art (IVF or FET) N Psychiatric Illness N Ovarian Cancer N Diabetes N Pulmonary (TB, Asthma) N Hepatitis/Liver Disease N No Past Medical History N Eczema N Urinary Tract Infection N Abuse/Domestic Violence N Asthma Y Trauma/Violence N Depression/ depression N Heart Disease N Pre-Eclampsia N Hypertension N Osteoporosis N Thrombophilias N Gynecological History Statement/Question Response Flow Light Frequency of Cycle (Q days) 12 Date of LMP 09/27/2024 Sexually Active? N Date of Last Pap Smear Duration of Flow (days) 5 LMP Definite Obstetrics History GPAL:G 0 P 0 0 0 0 Past Encounters Encounter ID Performer Location Encounter Start Date Encounter Closed Date Diagnosis/Indication Diagnosis SNOMED-CT Code Diagnosis ICD10 Code Diagnosis Note [id number] CAITLIN MERRITT NP [facility] [address] [address] 10/04/2024 14:33:22 10/04/2024 17:25:38 Generalized tenderness of breast 840983268 N64.4 Mass of right breast 757 [id number] N63.11 Bilateral breast ultrasound ordered to evaluate right breast mass and bilateral breast tenderness .Recommend ed well-fitti ng bra and decreasing caffeine to help reduce breast tenderness .Recommend ed Vitamin E 600 IU daily for breast tenderness .Patient advised to perform self-breas t exams and report any changes. Irregular periods [id number] 07 N92.6 Discussed that periods may be irregular for several months after stopping Depo Provera. Patient to call office if she does not have period at least once every 3 months, as further management and evaluation is recommende d to ensure healthy uterine lining. Patient declines control to regulate periods as she is not sexually active.Pat ient to RTO for well woman exam. Health Concerns Section Related Observation LastModified by Organization Detai ls LastModified Time None Recorded Concern Status LastModified by Organization Details LastModified Time None Recorded Advance Directives Directive None Recorded Payers Encounter Date Sequence Insurance Name Policy Number Policy [employer] Covered Member ID Galvan Member ID Guarantor Name 10/04/2024 1 [facility] Antoinette Weber [id number] Antoinette Weber Notes Date Note Type Note Provider Name and Address Organization Details Recorded Time 10/04/2024 text/html New patient here to discuss breast tenderness.Cong herrera states that she had her last depo provera shot in November 2023. Patient had a normal period in January. Patient states that she had bilateral breast tenderness in April and saw PCP due to pain. Patient had breast ultrasound done at [facility] and patient states that cyst was found in right breast. Patient states that the breast specialist recommended follow-up in 6 months and no biopsy needed at this time. Patient unsure if she has order for subsequent breast ultrasound.Cong herrera states that breast tenderness went away in June and now just returned a few weeks ago. Denies skin changes, lumps, or nipple discharge. Patient also states that her periods have been every 2-3 months since stopping Depo Provera. Denies family history of breast cancer. CAITLIN MERRITT NP [address], [place], [address], [place] [facility] 10/04/2024 17:23:03 OBGyn Episode No OBEpisode recorded.
== END 2024-11-30 08:28 | disposition home or self-care (01) ==
PROVIDERS: PCP Physician Assistant; Visit Provider Student in an Organized Health Care Education/Training Program
DX: N63.11 Unspecified lump in the right breast, upper outer quadrant (principal)
CPT/HCPCS: 76642

== ENCOUNTER 2025-05-06 10:37 | Emergency (ER) | payer OTHER, SELFPAY ==
[2025-05-06 10:48] VITALS: BP 106/72; PULSE 68; RESP 14; TEMP 36.7; O2SAT 100
--- NOTE | 2025-05-06 11:00 | ED_ITS ---
HPI - General Adult General Chief complaint: Unspecified Stated complaint: pelvic pain Time Seen by Provider: 05/06/25 10:39 Source: patient Mode of arrival: ambulatory Limitations: no limitations History of Present Illness HPI narrative: Antoinette is a 29-year-old female patient presenting to the clinic today with complaints of bilateral groin pain right greater than left. Rates her pain a 3 on a 10-aching pain. States she is very active at work-squatting, stairs, and walking. Thinks she may have pulled a groin muscle. Denies any urinary symptoms or vaginal discharge. Denies any concern for STIs. Denies any back pain or abdominal pain. No blood in her urine. No recent injury or fall. No wounds Related Data Home Medications ?Medication ?Instructions ?Recorded ?Confirmed ?Last Taken ?Type medroxyprogesterone 150 mg/mL 150 mg IM DIRECTED 12/07/19 12/10/23 Unknown History intramuscular suspension escitalopram oxalate 10 mg tablet 10 mg PO DAILY 12/10/23 12/10/23 Unknown History Allergies Allergy/AdvReac Type Severity Reaction Status Date / Time No Known Allergies Allergy Verified 05/06/25 10:40 Review of Systems Review of Systems: Pertinent positives per HPI. Patient denies any fever, chills, rash, headache, visual changes, dizziness, cough, runny nose, sore throat, shortness of breath, chest pain, palpitations, nausea, vomiting, diarrhea, constipation, abdominal pain, or any urinary issues. PMFSH Past Medical History Medical History No significant medical problems Surgical History Surgical History No pertinent past surgical history Social History Social History Smoking status: Never smoker Substance use type: marijuana Comments At the time of my signature, I reviewed and agree with the nursing past medical, surgical, social, and family history. There is no relevant family history pertinent to the patient complaint. Exam Narrative: General: Well-developed, well nourished, in no apparent distress Head: Normocephalic, atraumatic. Cardio: Regular rate and rhythm, s1 and s2 normal, no murmur appreciated. Resp: Clear to auscultation bilaterally, no rhonchi, rales, wheezing or rubs. Abdomen: Soft, pliable, bowel sounds present in all quadrants, non-tender to palpation, no organomegly, no CVAT tenderness. Musculoskeletal: No deformity, tender to palpation over bilateral groin muscle right greater than left, no lymphadenopathy swelling, pain over the groin musculature with internal and external rotation of the right hip as well as stepping down with resistance, grossly normal range of motion, muscle strength strong and equal, peripheral pulse strong, no edema, no cyanosis, normal gait and station Course Course Emergency Course: Portions of this record may have been created with voice recognition software. Level of Care: Express Care Visit Vital Signs Vital signs: Vital Signs Temperature 36.7 C 05/06/25 10:48 Pulse Rate 68 05/06/25 10:48 Respiratory Rate 14 05/06/25 10:48 Blood Pressure 106/72 05/06/25 10:48 Pulse Oximetry 100 05/06/25 10:48 Oxygen Delivery Room Air 05/06/25 10:48 Temperature 36.7 C 05/06/25 10:48 Pulse Rate 68 05/06/25 10:48 Respiratory Rate 14 05/06/25 10:48 Blood Pressure 106/72 05/06/25 10:48 Pulse Oximetry 100 05/06/25 10:48 Oxygen Delivery Room Air 05/06/25 10:48 Vital signs reviewed Medical Decision Making MDM Narrative Medical decision making narrative: At the time of visit patient is resting comfortably on the exam table. Patient appears to be nontoxic. Plan: I suspect patient has a groin strain. Patient already has muscle relaxers that she is able to take. Recommend Tylenol ibuprofen as needed for pain. Work note was given. Supportive measures were discussed with the patient and they voiced understanding discharge instructions and agrees to treatment plan. Return precautions reviewed Differential Diagnosis Differential Diagnosis: Lymphadenopathy, groin muscle strain, UTI, BV, ovarian cyst, appendicitis Vital Signs Vital Signs: Vital Signs Temperature 36.7 C 05/06/25 10:48 Pulse Rate 68 05/06/25 10:48 Respiratory Rate 14 05/06/25 10:48 Blood Pressure 106/72 05/06/25 10:48 Pulse Oximetry 100 05/06/25 10:48 Oxygen Delivery Room Air 05/06/25 10:48 Temperature 36.7 C 05/06/25 10:48 Pulse Rate 68 05/06/25 10:48 Respiratory Rate 14 05/06/25 10:48 Blood Pressure 106/72 05/06/25 10:48 Pulse Oximetry 100 05/06/25 10:48 Oxygen Delivery Room Air 05/06/25 10:48 Discharge Plan Discharge Clinical Impression: Groin strain Qualifiers: Encounter type: initial encounter Laterality: unspecified laterality Qualified Code(s): S76.219A - Strain of adductor muscle, fascia and tendon of unspecified thigh, initial encounter Patient Disposition: Home Condition: Stable Instructions: Antibiotic Form, Groin Strain (ED) Additional Instructions: I suspect you likely have a groin strain. May take Tylenol/ibuprofen as needed for pain May apply ice or heat to the affected area 20 minutes at a time May use your muscle relaxers as needed Follow-up with your primary care doctor and 5-7 days if symptoms persist Go to the emergency room if symptoms worsen Patient Language: Greenlandic Prescriptions: No Action medroxyprogesterone 150 mg/mL suspension 150 mg IM DIRECTED escitalopram oxalate 10 mg tablet 10 mg PO DAILY Follow-up/Referrals: Nupur,ADELAIDA Boss [Primary Care Provider] - Stand Alone Forms: Work/School Release IP Time of Disposition: 10:58 Quality NIHSS Nursing Documentation ED NIHSS nursing documentation: reviewed/agree
== END 2025-05-06 11:03 | disposition home or self-care (01) ==
PROVIDERS: Emergency Provider Nurse Practitioner Family; PCP Physician Assistant
DX: S76.219A Strain of adductor muscle, fascia and tendon of unspecified thigh, initial encounter (principal); X58.XXXA Exposure to other specified factors, initial encounter; Y99.0 Civilian activity done for income or pay
CPT/HCPCS: 99212; G0463

== ENCOUNTER 2025-10-24 16:45 | Emergency (ER) | payer OTHER, SELFPAY ==
--- NOTE | ~2025-10-24 | US_ITS ---
US OB <=14 wk fetus w TV INDICATION:vaginal bleeding while COMPARISON: None. TECHNIQUE: Transabdominal and transvaginal ultrasound of the pelvis was performed. FINDINGS: The uterus measures 5.3 x 3.2 x 5.9 cm. Gestational sac within the endometrium. No pole seen. The right ovary measures 2.8 x 1.6 x 2.8 cm. The left ovary measures 2.3 x 1.6 x 1.6 cm. The ovaries are normal in appearance. No adnexal masses are seen. No pelvic fluid or mass is seen. IMPRESSION: Gestational sac within the uterus with no pole seen. Reviewed, dictated and finalized at location S. COMPRESSOR OPERATOR
--- NOTE | 2025-10-24 17:47 | ED.PREGNANCY ---
HPI - General Chief complaint: Vaginal Bleeding Stated complaint: preg, spotting Time Seen by Provider: 10/24/25 17:02 History of Present Illness HPI Narrative: Patient is a 29-year-old female presents to the ER with concerns of vaginal bleeding during . She reports she her last menstrual period was at the end of August. Patient reports she took a test at home and it was positive. She reports she has an appointment set up with an OBGYN but has not had her 1st official appointment. Patient denies any issues with constipation, urinary burning, abnormal vaginal discharge, or recent fevers. She reports she was recently diagnosed with a yeast infection and has been on intravaginal medication for approximately 3 days. Patient endorses a history of anxiety but denies any other medical history. Related Data Home Medications ?Medication ?Instructions ?Recorded ?Confirmed ?Last Taken ?Type medroxyprogesterone 150 mg/mL 150 mg IM DIRECTED 12/07/19 12/10/23 Unknown History intramuscular suspension escitalopram oxalate 10 mg tablet 10 mg PO DAILY 12/10/23 12/10/23 Unknown History Allergies Allergy/AdvReac Type Severity Reaction Status Date / Time No Known Allergies Allergy Verified 05/06/25 10:40 Review of Systems Review of Systems: All systems reviewed & are unremarkable except as noted in HPI and below PMFSH Past Medical History Medical History No significant medical problems Surgical History Surgical History No pertinent past surgical history Social History Social History Smoking status: Never smoker Substance use type: marijuana Exam Narrative: GENERAL: Well appearing, well-nourished, non-toxic, in no acute distress. HEAD: Normocephalic, atraumatic. NECK: Supple. No adenopathy, no masses. RESPIRATORY: Airway patent, respirations nonlabored. Clear to auscultation bilaterally, no rales, rhonchi, wheezing. CARDIOVASCULAR: Regular rate and rhythm without murmurs, rubs, or gallops. Peripheral pulses 2+ and equal bilaterally. ABDOMINAL: Soft, bilateral lower quadrant tenderness, nondistended, no hepatosplenomegaly. Normoactive BS. MUSCULOSKELETAL: Moves all extremities. Strength/ROM intact without gross deformities. SKIN: Warm, dry, normal color. No rashes. NEURO: A&O X3. Speech clear. Cranial nerves II-XII intact. No ataxic movements. PSYCHIATRIC: Appropriate mood and affect. Normal interaction. : Patient declined vaginal exam Discharge Plan Discharge Clinical Impression: Threatened , Vaginal bleeding, Urinary tract infection Patient Disposition: Home Condition: Stable Instructions: Antibiotic Form, Threatened Miscarriage (ED) Additional Instructions: Please return to the ER with any worsening symptoms. Follow-up with OBGYN as soon as possible for further evaluation. You may take Tylenol as needed for pain control. Please complete your full dose of antibiotics. Patient Language: Northern Irish Prescriptions: New cephalexin 500 mg capsule 500 mg PO Q8H 7 Days Qty: 21 0RF No Action medroxyprogesterone 150 mg/mL suspension 150 mg IM DIRECTED escitalopram oxalate 10 mg tablet 10 mg PO DAILY Follow-up/Referrals: Nupur,ADELAIDA Boss [Primary Care Provider, Family Practice] Michael Harding MD [Physician, [employer]] Stand Alone Forms: Work/School Release IP MDM MDM Narrative Medical decision making narrative: Patient is a 29-year-old female presents to the ER with concerns of vaginal bleeding during (no abdominal pain). She reports she her last menstrual period was at the end of August. Patient reports she took a test at home and it was positive. She reports she has an appointment set up with an OBGYN but has not had her 1st official appointment. Patient denies any issues with constipation, urinary burning, abnormal vaginal discharge, or recent fevers. She reports she was recently diagnosed with a yeast infection and has been on intravaginal medication for approximately 3 days. Patient endorses a history of anxiety but denies any other medical history. Labs Ordered: Pt initially declined bloodwork. Imaging Ordered: Transvaginal ultrasound Medications Ordered: Tylenol 1 g, Kinsman p.o., 1 L normal saline IV bolus Results: Pt's US indicates The uterus measures 5.3 x 3.2 x 5.9 cm. Gestational sac within the endometrium. No pole seen. The right ovary measures 2.8 x 1.6 x 2.8 cm. The left ovary measures 2.3 x 1.6 x 1.6 cm. The ovaries are normal in appearance. No adnexal masses are seen. No pelvic fluid or mass is seen. Diagnosis: Threatened miscarriage, vaginal bleeding Consults: Dr. Harding, outpatient, OBGYN, already established Patient Education/Shared MDM: Results of lab work and imaging shared with patient. She reports her vaginal bleeding has increased since she has been in the ER, along with abdominal cramping. Patient continues to decline vaginal exam. She reports her pain was not relieved by Tylenol and is asking for a stronger pain medication. Patient strongly advised to maintain hydration status upon discharge and follow-up with OBGYN as soon as possible. She will be discharged home with a prescription for Keflex. Strict return precautions provided. Patient verbalized understanding and is in agreement with plan. Vital signs stable at time of discharge. All questions answered. Differential Diagnosis Differential Diagnosis: Urinary tract infection, intrauterine , threatened miscarriage, vaginal bleeding, Lab Data MDM Lab Attestation statement: I personally reviewed the patient's lab results. 10/24/25 19:36 10/24/25 19:36 Labs: Lab Results 10/24/25 10/24/25 10/24/25 Range/Units 17:15 19:36 19:46 WBC 14.2 H (4.5-10.0) K/mm3 RBC 4.39 (4.2-5.4) M/mm3 Hgb 13.2 (12.0-15.0) g/dL Hct 41.6 (37.0-47.0) % MCV 94.8 (80-100) fl MCH 30.1 (26-34) pg MCHC 31.7 L (32-36) g/dl RDW 14.2 (11.5-14.5) % Plt Count 253 (150-375) k/mm3 MPV 9.1 (7.4-10.4) fl Immature Gran % (Auto) 0.5 (0-0.5) % Neut % (Auto) 67.0 (45.5-73.1) % Lymph % (Auto) 21.5 (18.3-44.2) % Norman % (Auto) 9.9 H (2.6-8.5) % Eos % (Auto) 0.5 (0-4.4) % Baso % (Auto) 0.6 (0.2-1.2) % Lymph # (Auto) 3.04 (0.9-3.2) K/mm3 Norman # (Auto) 1.4 H (0.1-0.6) K/mm3 Eos # (Auto) 0.1 (0-0.3) K/mm3 Baso # (Auto) 0.1 (0.0-0.1) K/mm3 Abs Immat Gran (auto) 0.07 H (0.00-0.031) K/mm3 Absolute Neuts (auto) 9.5 H (1.3-6.7) K/mm3 Absolute Nucleated RBC 0.000 (0.0-0.012) K/mm3 Nucleated RBC % 0.0 (0.0-0.2) % PT 13.7 (11.1-14.7) Seconds INR 1.0 APTT 29.9 (22.3-36.8) Seconds Sodium 135 L (137-145) mmol/L Potassium 3.7 (3.4-5.0) mmol/L Chloride 105 (98-107) mmol/L Carbon Dioxide 24 (22-30) mmol/L Anion Gap 6 (4-12) mmol/L BUN 12 (7-17) mg/dL Creatinine 0.77 (0.7-1.0) mg/dL Estim Creat Clear Calc 71 ml/min Estimated GFR > 60 (59 - ) Glucose 89 (65-110) mg/dL Calcium 9.7 (8.4-10.2) mg/dL Total Bilirubin 0.3 (0.2-1.3) mg/dL AST 28 (14-36) U/L ALT 19 (6-35) U/L Alkaline Phosphatase 55 (38-126) U/L Total Protein 8.1 (6.3-8.2) g/dL Albumin 4.5 (3.5-5.1) g/dL Beta HCG, Quant 865.98 mIU/ML Urine Color Yellow (Yellow) Urine Appearance Cloudy H (Clear) Urine pH 5.5 (5.0-9.0) Ur Specific [place] 1.026 (1.001-1.035) Urine Protein Negative (Negative) mg/dL Urine Glucose (UA) Negative (Negative) mg/dL Urine Ketones Trace H (Negative) mg/dL Ur Blood (Man) 3+ H (Negative) Urine Nitrate Negative (Negative) Urine Bilirubin Negative (Negative) Urine Urobilinogen 0.2 (<2.0) mg/dL Leukocyte Esterase Rfl Negative (Negative) PRASAD/UL Urine RBC 3-5 H (0-2) /hpf Urine WBC 6-10 H (0-3) /hpf Ur Squamous Epith Cells Moderate (Few) /hpf Urine Bacteria 1+ H /hpf Urine Casts 0-2 POC Urine HCG, Qual Positive (Negative) Blood Type A Positive Antibody Screen Negative Screen TNP Baby's Blood Type Not Reportable Baby's ANTONINO Not Reportable Doses of RhIg Required 0 Imaging Data Attestation: I personally reviewed and interpreted this imaging study as follows: Radiologist's impression: ITS Impressions Obstetrics Ultrasound 10/24/25 22:34 IMPRESSION: Gestational sac within the uterus with no pole seen.
[2025-10-24 18:01] LABS: BEDSIDEPREGUCG Positive (Negative)
--- NOTE | 2025-10-24 18:07 | PC.NURSE ---
PATIENT FIRST DECLINED THE IV, STATED THAT SHE WOULD NOT LIKE/NEED IV FLUIDS OR MEDICATIONS AT THIS TIME. IVF DISCONTINUED; ERT WENT TO OBTAIN BLOOD WORK FOR EVALUATION OF PATIENT CONCERNS, PATIENT REFUSED TO HAVE HER LAB WORK AT THIS TIME; PROVIDER MADE AWARE AND WENT TO SPEAK WITH PATIENT.
--- OUTSIDE RECORDS SUMMARY | 2025-10-24 18:19 | XMS_ITS | Clinical Summary ---
Author Organization [facility] Address [address] [place] [address] Care Team Providers Care Auto Transmission Technician Name Role Phone Anabela Noyola MD Primary Care Provider [phone] Allergies No known active allergies Medications buPROPion XL (WELLBUTRIN XL) 150 mg 24 hr tabletIndicatio ns:Moderate episode of recurrent major depressive disorder (HCC) Take 1 tablet (150 mg total) by mouth every morning 90 tablet 1 12/18/2022 Active escitalopram (LEXAPRO) 10 mg tabletIndicatio ns:Generalized anxiety disorder Take 1 tablet (10 mg total) by mouth daily 90 tablet 1 12/18/2022 Active Active Problems Problem Noted Date Diagnosed Date Generalized anxiety disorder 09/23/2022 Assessment & Plan (09/23/2022 11:14 AM METALS ANALYST): Chronic Better Cont lexapro Well adult exam 08/26/2022 Breast pain, left 08/26/2022 Assessment & Plan (08/30/2022 4:50 AM CDT): New Order breast ultrasound Moderate episode of recurrent major depressive d isorder 08/26/2022 Assessment & Plan (09/23/2022 11:13 AM METALS ANALYST): Uncontrolled Start wellbutrin Assessment & Plan (08/30/2022 4:50 AM CDT): New Order lexapro Immunizations Immunization Administration Dates Next Due Influenza, Unspecified 08/26/2022(Deferred: [place] ent Refused) Medical History Medical History Date Comments Asthma Family History Medical History Relation Name Comments No Known Problems Father No Known Problems Mother Relation Name Status Comments Father Alive Mother Alive Social History Tobacco Use Types Packs/Day Years Used Date Smoking Tobacco: Never Smokeless Tobacco: Never Tobacco Cessation:Counseling Given: Not Answered AUDIT-C Answer Date Recorded Q1: How often do you have a drink containing alcohol? Never 08/26/2022 Q2: How many drinks containi ng alcohol do you have on a typical day when you are drinking? Patient does not drink Q3: How often do you have si x or more drinks on one occasion? Never 08/26/2022 PHQ-2 Answer Date Recorded PHQ-2 Total Score (If total score is 3 or more points, staff should administer the PHQ-9) 3 08/26/2022 Personal Safety Answer Date Recorded Getting School Help Needed Not on file 01/10 Comments No Sex and Gender Information Value Date Recorded Sex Assigned at Not on file Legal Sex Female 8:29 AM CDT Gender Identity Not on file Sexual Orientation Not on file Obstetrics History Para Term AB IAB SAB Ectopic Multiple Livin g Live Births 0 0 0 0 0 0 0 0 0 0 0 Last Filed Vital Signs Vital Sign Reading Time Taken Comments Blood Pressure 80/64 08/26/2022 11:00 AM CDT Pulse 96 08/26/2022 11:00 AM CDT Temperature 36.6 C (97.8 F) 08/26/2022 11:00 AM CDT Respiratory Rate 16 08/26/2022 11:00 AM CDT Oxygen Saturation 98% 08/26/2022 11:00 AM CDT Inhaled Oxygen Concentration - - Weight 48.5 kg (107 lb) 09/23/2022 10:51 AM METALS ANALYST Height 165.1 cm (5' 5) 09/23/2022 10:51 AM METALS ANALYST Body Mass Index 17.81 09/23/2022 10:51 AM METALS ANALYST Plan of Treatment Not on file Insurance [place], [place] [id number] [facility] PL[facility] Care Teams Auto Transmission Technician Relationship Specialty Start Date End Date Anabela Noyola MD PCP - General Family Medicine 08/19/22
--- OUTSIDE RECORDS SUMMARY | 2025-10-24 18:19 | XMS_ITS | Data Portability ---
Author Organization [facility] [place] Address [address] [address] Assessment No assessment recorded. Plan of Treatment Reminders Order Date Submit Date Provider Last Modified By Organization Details Last Modified Time Details Appointments None recorded. Lab None recorded. Referral None recorded. Procedures None recorded. Surgeries None recorded. Imaging US, breast, bilateral 2023 024 [facility] (Mammography) , [address], [place], [address], 05:00:47 Medication Orders None recorded. Patient TargetsNo targets [...] Body mass index (BMI) Body weight Systolic And Diastolic Provider Name and Address Organization Details Last Updated DateTime 10/04/2024 167.64 cm 17.1 kg/m2 93462.79 g 134/82 mm[Hg] Bethany Mcgovernton [facility] 10/04/2024 14:51:46 Social History Question Answer Notes LastModified by Organizat ion Details LastModified Time Tobacco Smoking Status Never Smoker Bethany Vargas [facility] 10/04/2024 14:52:47 Are You Blind Or Do You Have Difficulty Seeing? No [email or web address] Information n ot available 10/04/2024 In The 14 Days Before Symptom Onset, Have You Had Close Contact With A Laboratory-confirm ed COVID-19 While That Case Was Ill? No [email or web address] Information n ot available 10/04/2024 In The 14 Days Before Symptom Onset, Have You Had Close Contact With A Person Who Is Under Investigation For COVID-19 While That Person Was Ill? No [email or web address] Information not available 10/04/2024 Have You Been To An Area Known To Be High Risk For COVID-19? No [email or web address] Information not available 10/04/2024 Are You Deaf Or Do You Have Serious Difficulty Hearing? No [email or web address] Information not available 10/04/2024 What Type Of Diet Are You Following? REGULAR Information n ot available 10/04/2024 What Is The Highest Grade Or Level Of School You Have Completed Or The Highest Degree You Have Received? [id number] Information not available 10/04/2024 Are There Any Guns Present In Your Home? No Information not available 10/04/2024 Do You Use Your Seat Belt Or Car Seat Routinely? Yes [email or web address] Information not available 10/04/2024 Are You Sexually Active? No [email or web address] Information not available 10/04/2024 Do You Have Smoke And Carbon Monoxide Detectors In Your Home? Yes Information not available 10/04/2024 Do You Use Sunscreen Routinely? No [email or web address] Information not available 10/04/2024 Do You Have Difficulty Walking Or Climbing Stairs? No [email or web address] Information not available 10/04/2024 Sex: Unknown Functional Status Question Answer Note LastModified by Organizat ion Details LastModified Time What is your level of alcohol consumption? None Information not available 10/04/2024 Are you currently employed? Yes [email or web address] Information not available 10/04/2024 Are you able to walk independently without assistance or assistive devices? YESWOREST [email or web address] Information not available 10/04/2024 Are you able to care for yourself independently? 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 No [email or web address] Information not available 10/04/2024 What is your exercise level? Moderate Information not available 10/04/2024 Mental Status Question Answer Note LastModified by Organization D etails LastModified Time Do you feel stressed (tense, restless, nervous, or anxious, or unable to sleep at night)? [id number] [email or web address] Information not available 10/04/2024 Family History Nothing Reported. Medical History Condition [...] Diagnosis SNOMED-CT Code Diagnosis ICD10 Code Diagnosis IMO Codes Diagnosis Note [id number] Chas Johnston MD [place] [address] [address] 10/04/2024 14:33:22 10/04/2024 17:25:38 Generalized tenderness of breast [id number] N64.4 Mass of right breast [id number] N63.11 Bilateral breast ultrasound ordered to evaluate right breast mass and bilateral breast tenderness .Recommend ed well-fitti ng bra and decreasing caffeine to help reduce breast tenderness .Recommend ed Vitamin E 600 IU daily for breast tenderness .Patient advised to perform self-breas t exams and report any changes. Irregular periods [id number] N92.6 Discussed that periods may be [...] Recorded Advance Directives Directive None Recorded Payers Insurance Date Sequence Insurance Name Policy Number Policy Galvan Covered Member ID Galvan Member ID Guarantor Name 11/20/2024 1 [facility] Antoinette Weber [id number] Antoinette Weber Notes Date Note Type Note Provider Name and Address Organization Details Recorded Time 10/04/2024 text/html ROS as noted in the HPI New patient here to discuss breast tenderness.Cong t states that she had her last depo provera shot in November 2023. Patient had a normal period in January. Patient states that she had bilateral breast tenderness in April and saw PCP due to pain. Patient had breast ultrasound done at [facility] and patient states that cyst [...] cancer. CAITLIN MERRITT NP [address], [place], [address], [facility] 10/04/2024 17:23:03 OBGyn Episode No OBEpisode recorded.
--- OUTSIDE RECORDS SUMMARY | 2025-10-24 18:43 | XMS_ITS | Clinical Summary ---
Author Organization [facility] at the [facility] Address [address] [place] [address] Care Team Providers Care Client Care Specialist Name Role Phone Anabela Noyola MD Primary Care Provider [phone] Allergies No known active allergies Medications buPROPion [...] 09/23/2022 Assessment & Plan (09/23/2022 11:14 AM IMPROVEMENT MANAGER): Chronic Better Cont lexapro Well adult exam 08/26/2022 Breast pain, left 08/26/2022 Assessment & Plan (08/30/2022 4:50 AM CDT): New Order breast ultrasound Moderate episode of recurrent major depressive d isorder 08/26/2022 Assessment & Plan (09/23/2022 11:13 AM IMPROVEMENT MANAGER): Uncontrolled Start wellbutrin Assessment & Plan (08/30/2022 [...] 48.5 kg (107 lb) 09/23/2022 10:51 AM IMPROVEMENT MANAGER Height 165.1 cm (5' 5) 09/23/2022 10:51 AM IMPROVEMENT MANAGER Body Mass Index 17.81 09/23/2022 10:51 AM IMPROVEMENT MANAGER Plan of Treatment Not on file Insurance [place], [place] [id number] [facility] CHO[facility] Address: [place] [address] [facility] Address: [place] [address] Care Teams Client Care Specialist Relationship Specialty Start Date End Date Anabela Noyola MD PCP - General Family Medicine 08/19/22
--- NOTE | 2025-10-24 19:12 | PC.NURSE ---
PATIENT RETURNED TO EXAM ROOM FROM BATHROOM AND STATED THAT HER PANTYLINER WAS FULL AND THAT SHE IS NOW EXPERIENCING CRAMPING NOW, WILL HAVE MIDLEVEL COME SPEAK TO HER.
[2025-10-24] MEDS: ACETAMINOPHEN 500 MG TABLET 1000 MG PO (19:45)
[2025-10-24 19:48] LABS: Hematocrit 41.6 % (37.0-47.0); Hemoglobin 13.2 g/dL (12.0-15.0); Immature Granulocyte Percent A 0.5 % (0-0.5); Lymphocytes Absolute Auto 3.04 K/mm3 (0.9-3.2); Mean Corpuscular HGB Conc 31.7 g/dl (32-36); Mean Corpuscular Hemoglobin 30.1 pg (26-34); Mean Corpuscular Volume 94.8 fl (80-100); Nucleated Red Blood Cells Absolute Auto 0.000 K/mm3 (0.0-0.012); Nucleated Red Blood Cells Perc 0.0 % (0.0-0.2); Platelet Count Result 253 k/mm3 (150-375); Red Blood Count 4.39 M/mm3 (4.2-5.4); White Blood Count 14.2 K/mm3 (4.5-10.0)
[2025-10-24 19:57] LABS: Add Urine Microscopic? YES; Appearance Urine Cloudy (Clear); Glucose Urine UA Negative (Negative); Leukocyte Esterase Ur Negative LEU/UL (Negative); Nitrate Urine Negative (Negative); Non Pathogenic Casts 0-2; Specific Grav Ur 1.026 (1.001-1.035)
[2025-10-24 19:57] LABS: Alanine Aminotransferase 19 U/L (6-35); Albumin Level 4.5 g/dL (3.5-5.1); Alkaline Phosphatase 55 U/L (38-126); Anion Gap 6 mmol/L (4-12); Aspartate Amino Transferase 28 U/L (14-36); Bilirubin,Total 0.3 mg/dL (0.2-1.3); Blood Urea Nitrogen 12 mg/dL (7-17); Calcium 9.7 mg/dL (8.4-10.2); Carbon Dioxide 24 mmol/L (22-30); Chloride 105 mmol/L (98-107); Estimated CRCL calculation 71 ml/min; Estimated Glomerular Filt Rate > 60; Glucose 89 mg/dL (65-110); Potassium 3.7 mmol/L (3.4-5.0); Sodium 135 mmol/L (137-145); Total Protein 8.1 g/dL (6.3-8.2)
[2025-10-24 20:06] LABS: INR 1.0; Partial Thromboplastin Time 29.9 Seconds (22.3-36.8); Prothrombin Time 13.7 Seconds (11.1-14.7)
[2025-10-24] MEDS: CEPHALEXIN 500 MG CAPSULE PO (22:59)
[2025-10-24] MEDS: HYDROcodone/acetaminophen (*CRX) 5-325 MG TABLET 1 TAB PO (22:59)
[2025-10-24 23:19] VITALS: BP 111/69; PULSE 78; RESP 14; TEMP 36.4; O2SAT 99
== END 2025-10-24 23:11 | disposition home or self-care (01) ==
PROVIDERS: Emergency Provider Registered Nurse; PCP Physician Assistant
DX: O20.0 Threatened abortion (principal); Z3A.14 14 weeks gestation of pregnancy; O23.42 Unspecified infection of urinary tract in pregnancy, second trimester; N39.0 Urinary tract infection, site not specified
CPT/HCPCS: 36415; 76801; 76817; 80053; 81001; 81025; 84702; 85025; 85461; 85610; 85730; 86850; 86900; 86901; 99284; A9270

== ENCOUNTER 2025-10-26 08:57 | Outpatient (CLI) | payer OTHER, SELFPAY ==
--- OUTSIDE RECORDS SUMMARY | 2025-10-26 09:37 | XMS_ITS | Clinical Summary ---
Author Organization [facility] Office Center Address [address] [place] [address] Care Team Providers Care Steam Box Operator Name Role Phone Anabela Noyola MD Primary Care Provider [phone] Allergies No known active allergies Medications buPROPion [...] 09/23/2022 Assessment & Plan (09/23/2022 11:14 AM COMMUNITY CULTURAL DEVELOPMENT OFFICER): Chronic Better Cont lexapro Well adult exam 08/26/2022 Breast pain, left 08/26/2022 Assessment & Plan (08/30/2022 4:50 AM CDT): New Order breast ultrasound Moderate episode of recurrent major depressive d isorder 08/26/2022 Assessment & Plan (09/23/2022 11:13 AM COMMUNITY CULTURAL DEVELOPMENT OFFICER): Uncontrolled Start wellbutrin Assessment & Plan (08/30/2022 [...] 48.5 kg (107 lb) 09/23/2022 10:51 AM COMMUNITY CULTURAL DEVELOPMENT OFFICER Height 165.1 cm (5' 5) 09/23/2022 10:51 AM COMMUNITY CULTURAL DEVELOPMENT OFFICER Body Mass Index 17.81 09/23/2022 10:51 AM COMMUNITY CULTURAL DEVELOPMENT OFFICER Plan of Treatment Not on file Insurance [place], [place] [id number] [facility] CHOICE PLUS [facility] CHOICE PLUS Care Teams Steam Box Operator Relationship Specialty Start Date End Date Anabela Noyola MD PCP - General Family Medicine 08/19/22
== END 2025-10-26 08:58 | disposition home or self-care (01) ==
PROVIDERS: PCP Physician Assistant; Visit Provider Nurse Practitioner Family
DX: O20.0 Threatened abortion (principal); Z3A.00 Weeks of gestation of pregnancy not specified
CPT/HCPCS: 36415; 84702